=== PATIENT | female | born 1945 | race Caucasian/White ===

== ENCOUNTER 2022-03-27 12:53 | Inpatient (IN) | payer MEDICARE, OTHER ==
[~2022-03-27] VITALS: Ht 167.6 cm; Wt 66.2 kg
--- NOTE | 2022-03-27 13:05 | NUR ---
placed a call and spoke to Op # [id number], pt to be observed for 4 hours. And EKG and LABS to be done, Dr Sharma made aware.
[2022-03-27] MEDS ORDERED: IV NORMAL SALINE 1000 ML BAG IV ONE (13:15)
--- NOTE | 2022-03-27 13:30 | NUR ---
JACLYN officer #[id number] at the bedside for Psych eval.
[2022-03-27 13:36] LABS: CARBON DIOXIDE 28 mmol/L (21-32); CHLORIDE 109 mmol/L (98-107); CREATININE 1.1 mg/dL (0.6-1.3); GLUCOSE 88 mg/dL (74-106); UREA NITROGEN, BLOOD 21 mg/dL (7-18)
[2022-03-27 13:42] LABS: ACETAMINOPHEN < 2.0 ug/mL (10-30); ALANINE AMINOTRANSFERASE 12 U/L (14-59); ALKALINE PHOSPHATASE 53 U/L (50-136); ASPARTATE AMINOTRANSFERASE 10 U/L (15-37); BILIRUBIN,DIRECT 0.1 mg/dL (0.0-0.2); BILIRUBIN,TOTAL 0.5 mg/dL (0.2-1.0); MEAN CORPUSCULAR HEMOGLOBIN 30.9 uug (24.7-32.8); MEAN CORPUSCULAR VOLUME 90.1 fL (75.5-95.3); PLATELET COUNT (AUTO) 269 K/uL (179-408); TOTAL PROTEIN, SERUM 5.7 g/dL (6.4-8.2)
--- NOTE | 2022-03-27 13:45 | NUR ---
Pt placed on 5150 hold for DTS by JACLYN.
[2022-03-27 13:49] LABS: *BILIRUBIN,URIN NEGATIVE (NEGATIVE); *BLOOD, URINE NEGATIVE (NEGATIVE); *CLARITY,URINE CLEAR (CLEAR); *COLOR,URINE YELLOW (YELLOW); *KETONES,URINE NEGATIVE (NEGATIVE); *UROBILINOGEN,URINE 0.2 E.U./dl (NORMAL); LEUKOCYTE ESTERASE ,URINE NEGATIVE (NEGATIVE); NITRITE, URINE NEGATIVE (NEGATIVE); UGLUCOSE NEGATIVE (NEGATIVE)
[2022-03-27 13:50] LABS: ETHANOL < 3 MG/DL (0-0)
[2022-03-27 14:02] LABS: *AMPHETAMINE, URINE NEGATIVE (NEGATIVE); *CANNABINOID, URINE NEGATIVE (NEGATIVE); *COCCAINE, URINE NEGATIVE (NEGATIVE); *OPIATE, URINE NEGATIVE (NEGATIVE); *PHENCYCLIDINE SCREEN,URINE NEGATIVE (NEGATIVE)
--- NOTE | 2022-03-27 14:55 | NUR ---
Light lunch provided, pt ate w/ moderate appettite.
--- NOTE | 2022-03-27 17:00 | NUR ---
Pt medically cleared for admit to MHU.
[2022-03-27] MEDS ORDERED: [UNRECOGNIZED DRUG - OTHER] PO (17:37)
[2022-03-27] MEDS ORDERED: LAMO100T17 PO (17:37)
[2022-03-27] MEDS ORDERED: TRAM50TA2 PO (17:37)
[2022-03-27] MEDS ORDERED: TRAZ-257 PO (17:37)
--- NOTE | 2022-03-27 18:06 | NUR ---
Dinner tray provided, pt had poor appettite.
--- NOTE | 2022-03-27 18:45 | NUR ---
Pt transfered to [facility].
--- NOTE | 2022-03-27 19:00 | NUR ---
Admitted patient in MHU unit under Dr. Evangelista and Dr Jackson. Patient alert oriented, well groomed, no skin issue, ambulate with min assist, continent of bladder, had BM yesterday per patient. Daugher and company at bedside. Patient has clear speech but has hand tremors, and patient state it's hereditary from her family. Patient tremors was able to control at some point when holding a cup of water. [place] to the room and toilet, TONGUE AND QUARTER STITCHER offered shower but refused, cont to monitor.
[2022-03-27] MEDS ORDERED: BLOOD SUGAR DIAGNOSTIC 1 EACH STRIP VI ONE (19:45)
[2022-03-27] MEDS ORDERED: MAG HYDROX/AL HYDROX/SIMETH 30 ML LIQUID UDC PO PRN (19:45)
[2022-03-27] MEDS ORDERED: MAGNESIUM HYDROXIDE 30 ML LIQUID UDC PO PRN (19:45)
[2022-03-27] MEDS ORDERED: TEMAZEPAM 7.5 MG CAPSULE PO PRN (19:45)
[2022-03-27 20:06] VITALS: BP 113/60
[2022-03-28] MEDS ORDERED: ACETAMINOPHEN 325 MG TABLET ONE ×3 (00:13→00:15)
[2022-03-28] MEDS: ACETAMINOPHEN 325 MG TABLET PO PRN (00:18)
[2022-03-28] MEDS: LORAZEPAM 1 MG TABLET PO PRN (00:18)
[2022-03-28 07:49] LABS: CREATININE 0.8 mg/dL (0.6-1.3); POTASSIUM 3.5 mmol/L (3.5-5.1); TOTAL PROTEIN, SERUM 6.4 g/dL (6.4-8.2)
[2022-03-28 07:56] VITALS: BP 116/65
[2022-03-28] MEDS ORDERED: LAMOTRIGINE 100 MG TABLET PO SCH ×2 (09:00→21:00)
--- NOTE | 2022-03-28 12:08 | NUR ---
TREVA Initial Discharge Plan: Pt currently resides at home with her , Mono located at [address] [place] [address] ([phone]). Pt stated she will return home with her upon discharge. SW will contact pt's , Mono ([phone]) to discuss pt's discharge plan. TREVA will continue to work with pt, family and MD to ensure a safe and proper discharge plan.
--- NOTE | 2022-03-28 12:10 | NUR ---
Firearms Report: Document Review Specialist completed and submitted a [employer] firearms report for 5150 a danger to herself certifications. A copy of report has been placed in patient chart.
--- NOTE | 2022-03-28 15:20 | NUR ---
Received patient sleeping in the room. A/O X 3 -4 to person, place, situation. Pt. is isolative, withdrawn, depressed, cooperative with care, and compliant with medications. Pt. ambulates without assistance. Self care. Denies SI/HI AH/VH, SOB, pain or any discomfort. Pt. is continent of bladder and bowel. Emotional support provided. Fall and safety precautions implemented.
[2022-03-28 16:06] VITALS: BP 128/66
[2022-03-28 20:00] VITALS: BP 117/60
[2022-03-28] MEDS: MIRTAZAPINE 15 MG TABLET PO SCH (20:44)
[2022-03-28] MEDS: ZIPRASIDONE 20 MG CAPSULE PO SCH (20:44)
--- NOTE | 2022-03-29 06:00 | NUR ---
GPS: Remain calm and cooperative with meds and care. no behavior noted at this time. no agitation noted. slept 7.15 hrs through the night. continue plan of care.
[2022-03-29 07:54] VITALS: BP 135/69
--- NOTE | 2022-03-29 13:22 | NUR ---
Gps/Fuel Tank Sealer And Tester- Cell phone taken ou of the safe, given back to as she requested. Patient anxious, , redirectable, making her simple needs known to staff, claimed she is looking forward to go home. Encouraged continued verbalizations of her feelings .
[2022-03-29 16:39] VITALS: BP 115/59
[2022-03-29 20:00] VITALS: BP 114/67
[2022-03-29] MEDS: LAMOTRIGINE 100 MG TABLET PO SCH (20:25)
[2022-03-29] MEDS: ZIPRASIDONE 20 MG CAPSULE PO SCH (20:34)
[2022-03-29] MEDS: MIRTAZAPINE 15 MG TABLET PO SCH (20:34)
[2022-03-30] MEDS: TRAZODONE 100 MG TABLET PO PRN ×2 (01:19→20:29)
[2022-03-30 07:49] VITALS: BP 126/69
[2022-03-30] MEDS: TRAMADOL HCL 50 MG TABLET PO PRN (09:13)
[2022-03-30] MEDS: MIRTAZAPINE 15 MG TABLET PO SCH (20:29)
[2022-03-30] MEDS: ZIPRASIDONE 20 MG CAPSULE PO SCH (20:29)
[2022-03-30] MEDS: LAMOTRIGINE 100 MG TABLET PO SCH (20:29)
[2022-03-30] MEDS: ACETAMINOPHEN 325 MG TABLET PO PRN (20:30)
[2022-03-30 20:57] VITALS: BP 121/66
--- NOTE | 2022-03-31 05:09 | NUR ---
gps notes: Received patient in her room talking to her peer, Patient is pleasant when greeted. Patient able to communicate needs. Compliant with medications. Denies SI. Verbalized concerns on the medications that she's taking. Patient educated on the effect of the medications. Patient verbalized understanding. Trazadone given as per patient request. Uncontrollable hand tremors noted. Patient sleeping on and off during shift as she worries about her room mate. Safety strategies in place.
[2022-03-31 08:20] VITALS: BP 119/58
[2022-03-31 15:28] VITALS: BP 111/70
[2022-03-31] MEDS: POLYVINYL ALCOHOL OPHT DROPS 15 ML BOTTLE EACHEYE PRN (15:47)
--- NOTE | 2022-03-31 18:22 | NUR ---
Gps/Production Utility Worker-Affect pleasant, interacting fairly well with her selected peer . No Crying spells noted. Compliant with her medications. Showered self ind. after set up. Continue o show motivations in self care and meds. management. Complained of dryness in her eyes , orders received fro Tiff LEYVA . Able to make her needs known to the staff.
[2022-03-31] MEDS: LORAZEPAM 1 MG TABLET PO PRN (19:00)
[2022-03-31] MEDS: ZIPRASIDONE 20 MG CAPSULE PO SCH (20:04)
[2022-03-31] MEDS: MIRTAZAPINE 15 MG TABLET PO SCH (20:05)
[2022-03-31] MEDS: LAMOTRIGINE 100 MG TABLET PO SCH (20:05)
[2022-03-31] MEDS: ACETAMINOPHEN 325 MG TABLET PO PRN (20:36)
[2022-03-31] MEDS: TRAZODONE 100 MG TABLET PO PRN (22:02)
[2022-03-31 22:18] VITALS: BP 126/67
--- NOTE | 2022-04-01 03:26 | NUR ---
Received patient in bed. Awake and alert. Patient made a verbal contract for safety with this technical proposal writer and denies active SI at this time. Safety Stratiges are in place. Continuing to monitor closely and encourage the patient to verbalize needs and to express feeling and concerns.
[2022-04-01 07:53] VITALS: BP 122/65
[2022-04-01] MEDS: POLYVINYL ALCOHOL OPHT DROPS 15 ML BOTTLE EACHEYE PRN (08:38)
--- NOTE | 2022-04-01 10:14 | NUR ---
Gps/Automatic Clipper And Stripper-Up early during the initial rounds , always taking care of her roommate, paying attention on her simple needs. Dryness to his eyes, prn artificial tears was applied , verbalized some relief. Denies any S.I. simone for safety , interacting with her peer.
[2022-04-01] MEDS: TRAMADOL HCL 50 MG TABLET PO PRN ×2 (14:20→21:28)
--- NOTE | 2022-04-01 14:46 | NUR ---
Gps/Card Puncher- Complained of lower back pain, instructed to lay down in bed to rest her back, claimed it aggravates her pain when she kept standing , ultram 50 mg 1 tab. po was given, encouraged to stay of her back , repositioned for comfort.
[2022-04-01] MEDS: ACETAMINOPHEN 325 MG TABLET PO PRN (15:37)
--- NOTE | 2022-04-01 15:39 | NUR ---
Gps/Clothes Ironer- Patient's in to visit, brought some kind of electric unit device that patient uses at home to help her lower back, r/t long cords noted informed patient and family it is not allowed to have such device here for safe, informed patient was medicated w/ Ultram 50 mg po, prior, and he stated" that's ' good ultram is ok" informed will have Psychiatrist to call him tonight or tomorrow. Per tomorrow will have a big meeting r/t concern why patient is still here , she's been here for more than 72 hours, tried to explained to why she's still on hold, informed Psychiatrist will explained and and will make sure he's get the call . While talking to patient claimed she felt a lot better , adequate relief pain , level 4/10 , will continue to monitor pain levels. remains in the room visiting.
[2022-04-01 16:49] VITALS: BP 98/56
--- NOTE | 2022-04-01 17:29 | NUR ---
Gps/Authorization Rep- Device brought in by patient's ,was returned to him was told such equipments not allowed r/r to long cords and electrical , verbalized understanding, apologized for brining the equipment , claimed worried about Bellas' > pain on her lower back, apparently ultram 50 mg po works for the patient , had adequate relief from her pain.
--- NOTE | 2022-04-01 17:42 | NUR ---
Gps/Regulatory Technician- Patient has some kind of implant in her left buttock , claimed she has it for more than a year , she uses the device 3 hours at a time , charged the machine q 10 days, but unable to check exactly how , device taken home by .
[2022-04-01 19:54] VITALS: BP 107/68
[2022-04-01] MEDS: ZIPRASIDONE 20 MG CAPSULE PO SCH (21:15)
[2022-04-01] MEDS: LAMOTRIGINE 100 MG TABLET PO SCH (21:15)
[2022-04-01] MEDS: MIRTAZAPINE 15 MG TABLET PO SCH (21:15)
[2022-04-01] MEDS: TRAZODONE 100 MG TABLET PO PRN (21:15)
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
[2022-04-02 07:52] VITALS: BP 115/54
--- NOTE | 2022-04-02 10:18 | NUR ---
TREVA Discharge Note: Pt will be discharged to Home [address] [facility], [address] [place] [address] via pts husbands transportation at 1PM. TREVA spoke with pts , Mono ([phone]) and daughter, Brendan ([phone]) who are aware and agreeable with the discharge plan. Pt is aware and agreeable with discharge plans. Pt is alert and oriented x4, is unable to plan for self-care at this time; however, is willing to accept care by a full-time narrow gauge brakeman per Brendan and pts . Pt denies any suicidal or homicidal ideation. Pt will follow-up with her outpatient Psychiatrist, Dr. Taylor on April 06 at 2PM ([phone]) located at [address] [place] [address] [address] [address]. TREVA left a voicemail for pts daughter, Brendan ([phone]) regarding her follow-up appointment with the psychiatrist. TREVA informed pts , Mono of pts follow-up appointment details with the psychiatrist. Pt will follow-up with her outpatient supervisor spring up. Pt presents with calm mood and congruent affect. PHARMACY: [facility]: [address] [place] [address] ([phone]).
--- NOTE | 2022-04-02 13:15 | NUR ---
GPS: Nursing Notes: Discharge Notes: Patient is awake and responding to her name, compliant with her medications, cooperative with nursing care, following staff directions, A/Ox4, denies SI/HI, denies AH/VH, denies pain or discomfort, denies SOB, discharge to home with Lenard Villareal at [address] [facility] [address], [place] [address]. Patient will follow up with Dr. Taylor on April 06 at 2pm . Also, patient will follow up with with her own primary physician as soon as possible. Mark Brito NP [phone] Addendum: 04/02/22 at 1333 by NELA KIRK LVN Continuation of charting: Mark Brito NP called [facility] pharmacy per family request, picked up by her - Mono, transported home via private vehicle, patient took all her belongings with her, information and instructions given to the patient.
== END 2022-04-02 13:15 | disposition home or self-care (01) | DRG 881 ==
LOC: ER 12:53 → GPS 18:31
PROVIDERS: ADMIT Nurse Practitioner Psychiatric/Mental Health; ATTEND Registered Nurse
DX: F32.9 Major depressive disorder, single episode, unspecified (principal); T46.5X2A Poisoning by other antihypertensive drugs, intentional self-harm, initial encounter; I95.89 Other hypotension; Y92.039 Unspecified place in apartment as the place of occurrence of the external cause; J44.9 Chronic obstructive pulmonary disease, unspecified; M81.0 Age-related osteoporosis without current pathological fracture; I10 Essential (primary) hypertension; F41.9 Anxiety disorder, unspecified; Z20.822 Contact with and (suspected) exposure to COVID-19; Z59.9 Problem related to housing and economic circumstances, unspecified; F39 Unspecified mood [affective] disorder; R41.9 Unspecified symptoms and signs involving cognitive functions and awareness; Z91.51 Personal history of suicidal behavior; Z79.899 Other long term (current) drug therapy
CPT/HCPCS: 36415; 71045; 85025; 93005; A4663; G0480; J7040

== ENCOUNTER 2024-07-07 13:27 | Inpatient (IN) | payer MEDICARE, OTHER ==
[~2024-07-07] VITALS: Ht 167.6 cm; Wt 64.9 kg
[~2024-07-07 13:27] MED LIST: TRAM50TA2 PO
[2024-07-07] MEDS ORDERED: DOCU100C36 PO (14:09)
[2024-07-07 14:19] VITALS: BP 117/48; TEMP 99; O2SAT 95
[2024-07-07] MEDS ORDERED: VILA20TA PO (14:42)
[2024-07-07] MEDS ORDERED: CLON1TAB12 PO (14:42)
[2024-07-07] MEDS ORDERED: LAMO100T17 PO (14:42)
[2024-07-07] MEDS ORDERED: HYDR-4209 PO (14:42)
[2024-07-07] MEDS ORDERED: OXCA150T13 PO ×2 (14:42)
[2024-07-07] MEDS ORDERED: TRAZ-182 PO (14:42)
[2024-07-07] MEDS ORDERED: ENOX40DI SQ (14:42)
[2024-07-07] MEDS ORDERED: PANT40TA49 PO (14:44)
[2024-07-07] MEDS: LAMOTRIGINE 100 MG TABLET PO SCH (17:47)
[2024-07-07] MEDS: DOCUSATE SODIUM 100 MG CAPSULE PO SCH (17:47)
[2024-07-07] MEDS: HYDROCODONE/APAP 5-325MG TABLET PO PRN (17:48)
[2024-07-07] MEDS ORDERED: Medication Not On Formulary EA (Vilazodone Hydrochloride (Viibryd) 20 MG) PO SCH (18:00)
[2024-07-07 20:00] VITALS: BP 118/43; TEMP 98.7; O2SAT 94
[2024-07-07] MEDS: ENOXAPARIN SODIUM 40 MG/0.4 ML DISP.SYRIN SQ SCH (21:41)
[2024-07-07] MEDS: OXCARBAZEPINE 150 MG TABLET PO SCH (21:42)
[2024-07-08] VITALS (7 sets, daily range): BP systolic 94–121; BP diastolic 48–57; TEMP 98.2–98.9; O2SAT 91–97
[2024-07-08] MEDS: CLONAZEPAM 1 MG TABLET PO PRN (03:13)
[2024-07-08 07:04] LABS: BASOPHILS % (AUTO) 0.3 % (0.0-2.0); EOSINOPHILS # (AUTO) 0.2 K/uL (0.0-0.7); EOSINOPHILS % (AUTO) 3.3 % (0.0-7.0); LYMPHOCYTES # (AUTO) 1.5 K/uL (0.8-4.8); LYMPHOCYTES % (AUTO) 21.9 % (20.5-51.5); MEAN CORPUSCULAR HEMOGLOBIN 32.6 uug (24.7-32.8); MEAN CORPUSCULAR HGB CONC 36 g/dL (32.3-35.6); MEAN CORPUSCULAR VOLUME 91.9 fL (75.5-95.3); MONOCYTES # (AUTO) 0.7 K/uL (0.1-1.30); MONOCYTES % (AUTO) 9.7 % (0.0-11.0); NEUTROPHILS # (AUTO) 4.5 K/uL (1.8-8.9); NEUTROPHILS % (AUTO) 64.8 % (38.5-71.5); PLATELET COUNT (AUTO) 246 K/uL (179-408); RED CELL DISTRIBUTION WIDTH 14.3 % (12.3-17.7)
[2024-07-08 07:25] LABS: RED BLOOD CELL COUNT(AUTO) 2.24 MIL/uL (3.63-4.92)
[2024-07-08 07:26] LABS: DIFFERENTIAL COMMENT 1; HEMATOCRIT 20.6 % (31.2-41.9); HEMOGLOBIN 7.3 g/dL (10.9-14.3)
[2024-07-08 07:35] LABS: THYROID STIMULATING HORMONE 0.974 mIU/mL (0.358-3.740)
[2024-07-08 08:12] LABS: ALANINE AMINOTRANSFERASE 16 U/L (14-59); ALBUMIN 2.1 g/dL (3.4-5.0); ALKALINE PHOSPHATASE 53 U/L (50-136); ASPARTATE AMINOTRANSFERASE 18 U/L (15-37); BILIRUBIN,TOTAL 1.1 mg/dL (0.2-1.0); CALCIUM 7.7 mg/dL (8.5-10.1); CARBON DIOXIDE 32 mmol/L (21-32); CHLORIDE 101 mmol/L (98-107); CHOLESTEROL 144 mg/dL (<200); CREATININE 0.4 mg/dL (0.6-1.3); GLUCOSE 91 mg/dL (74-106); HDL CHOLESTEROL 44 mg/dL (40-60); MAGNESIUM 2.1 mg/dL (1.8-2.4); PHOSPHOROUS 1.9 mg/dL (2.5-4.9); POTASSIUM 3.1 mmol/L (3.5-5.1); SODIUM SERUM 136 mmol/L (136-145); TOTAL PROTEIN, SERUM 5.1 g/dL (6.4-8.2); TRIGLYCERIDES 69 MG/DL (30-150); UREA NITROGEN, BLOOD 7 mg/dL (7-18)
[2024-07-08] MEDS: OXCARBAZEPINE 150 MG TABLET PO SCH (09:21)
[2024-07-08] MEDS: PANTOPRAZOLE SODIUM 40 MG TABLET.DR PO SCH (09:25)
[2024-07-08] MEDS: POTASSIUM CHLORIDE 20 MEQ POWDER PACKET PO ONE (11:31)
[2024-07-08] MEDS: NEUTRA PHOS PACKET PO ONE (15:53)
[2024-07-08] MEDS: [UNRECOGNIZED DRUG - OTHER] PO SCH (21:19)
[2024-07-08] MEDS: VIIBRYD 20 MG PO SCH (21:19)
[2024-07-08] MEDS: TRAZODONE 50 MG TABLET PO PRN (22:36)
[2024-07-09 06:00] VITALS: BP 139/65; TEMP 99; O2SAT 100
[2024-07-09 08:40] VITALS: O2SAT 95
[2024-07-09 08:46] VITALS: BP 135/64; TEMP 99; O2SAT 97
[2024-07-09 15:55] VITALS: BP 115/55; TEMP 98.3; O2SAT 99
[2024-07-09] MEDS: MAGNESIUM HYDROXIDE 30 ML LIQUID UDC PO PRN (16:54)
[2024-07-09 21:21] VITALS: O2SAT 97
[2024-07-09 22:27] VITALS: BP 147/69; TEMP 98.2; O2SAT 100
[2024-07-10 06:00] VITALS: BP 121/88; TEMP 99.2; O2SAT 92
[2024-07-10 06:41] LABS: BASOPHILS % (AUTO) 0.5 % (0.0-2.0); EOSINOPHILS # (AUTO) 0.4 K/uL (0.0-0.7); EOSINOPHILS % (AUTO) 5.9 % (0.0-7.0); HEMATOCRIT 24.3 % (31.2-41.9); HEMOGLOBIN 8.3 g/dL (10.9-14.3); LYMPHOCYTES # (AUTO) 1.7 K/uL (0.8-4.8); LYMPHOCYTES % (AUTO) 24.6 % (20.5-51.5); MEAN CORPUSCULAR HEMOGLOBIN 31.7 uug (24.7-32.8); MEAN CORPUSCULAR HGB CONC 34 g/dL (32.3-35.6); MEAN CORPUSCULAR VOLUME 92.7 fL (75.5-95.3); MONOCYTES # (AUTO) 0.7 K/uL (0.1-1.30); MONOCYTES % (AUTO) 10.4 % (0.0-11.0); NEUTROPHILS % (AUTO) 58.6 % (38.5-71.5); PLATELET COUNT (AUTO) 329 K/uL (179-408); RED BLOOD CELL COUNT(AUTO) 2.62 MIL/uL (3.63-4.92); RED CELL DISTRIBUTION WIDTH 14.6 % (12.3-17.7); WHITE BLOOD COUNT (AUTO) 6.8 K/uL (3.8-11.8)
[2024-07-10 06:55] LABS: DIFFERENTIAL COMMENT 1
[2024-07-10 07:01] LABS: ALANINE AMINOTRANSFERASE 40 U/L (14-59); ALBUMIN 2.3 g/dL (3.4-5.0); ALKALINE PHOSPHATASE 181 U/L (50-136); ASPARTATE AMINOTRANSFERASE 44 U/L (15-37); CALCIUM 8.2 mg/dL (8.5-10.1); CARBON DIOXIDE 31 mmol/L (21-32); CHLORIDE 101 mmol/L (98-107); CREATININE 0.5 mg/dL (0.6-1.3); GLUCOSE 91 mg/dL (74-106); MAGNESIUM 2.1 mg/dL (1.8-2.4); PHOSPHOROUS 2.5 mg/dL (2.5-4.9); POTASSIUM 3.7 mmol/L (3.5-5.1); SODIUM SERUM 135 mmol/L (136-145); TOTAL PROTEIN, SERUM 5.6 g/dL (6.4-8.2); UREA NITROGEN, BLOOD 7 mg/dL (7-18)
[2024-07-10 07:13] LABS: IRON, SERUM 28 ug/dL (50-175)
[2024-07-10] MEDS: FLEET ENEMA 133 ML BOTTLE RC PRN (13:51)
[2024-07-10] MEDS: CALCIUM CARBONATE 500 MG TAB.CHEW PO PRN (13:52)
[2024-07-10 20:00] VITALS: BP 116/58; TEMP 97.9; O2SAT 97
[2024-07-11 06:00] VITALS: BP 139/54; TEMP 98.4; O2SAT 92
[2024-07-11 08:31] VITALS: BP 145/57; TEMP 98.4; O2SAT 98
[2024-07-11] MEDS: BISACODYL 10 MG SUPP.RECT RC ONE (09:17)
[2024-07-11 11:39] VITALS: BP 116/53; TEMP 98.4; O2SAT 94
[2024-07-11 16:21] VITALS: BP 132/58; TEMP 97.6; O2SAT 96
[2024-07-12 04:35] VITALS: O2SAT 97
[2024-07-12 07:00] VITALS: BP_SYST 47; TEMP 98.4; O2SAT 92
[2024-07-12] MEDS ORDERED: REMEDY ESSENTIAL ZINC PASTE 113 GM TOP PRN (09:15)
[2024-07-12] MEDS: CLONAZEPAM 1 MG TABLET PO PRN (14:28)
[2024-07-12 15:38] VITALS: O2SAT 96
[2024-07-12 16:00] VITALS: BP 108/62; TEMP 99.3; O2SAT 94
[2024-07-12 22:10] VITALS: BP 115/61; TEMP 99.2; O2SAT 95
[2024-07-13 06:52] VITALS: BP 116/58; TEMP 98.4; O2SAT 97
[2024-07-13] MEDS: SIMETHICONE 80 MG TAB.CHEW PO PRN (08:36)
[2024-07-13 14:04] VITALS: BP 119/62; TEMP 98.4; O2SAT 95
[2024-07-13 16:00] VITALS: BP 107/51; TEMP 98.8; O2SAT 93
[2024-07-13 20:16] VITALS: BP 112/54; TEMP 98.1; O2SAT 92
[2024-07-13] MEDS: CLONAZEPAM 1 MG TABLET PO SCH (21:04)
[2024-07-14 06:57] VITALS: BP 129/56; TEMP 98.7; O2SAT 95
[2024-07-14 08:38] VITALS: BP 117/56; TEMP 98.3; O2SAT 95
[2024-07-14] MEDS: ACETAMINOPHEN 325 MG TABLET PO PRN (09:13)
[2024-07-14 11:08] VITALS: O2SAT 97
[2024-07-14] MEDS: BISACODYL 10 MG SUPP.RECT RC ONE (13:51)
[2024-07-14] MEDS: ENSURE ENLIVE (VAN) 240 ML LIQUID PO SCH (13:58)
[2024-07-14 16:30] VITALS: BP 118/52; TEMP 98.3; O2SAT 95
[2024-07-14 21:47] VITALS: BP 115/46; TEMP 98.1; O2SAT 92
[2024-07-14 22:00] VITALS: O2SAT 93
[2024-07-15 06:30] VITALS: BP 132/59; TEMP 98.4; O2SAT 94
[2024-07-15 06:45] LABS: BASOPHILS # (AUTO) 0.1 K/UL (0.0-0.2); BASOPHILS % (AUTO) 0.7 % (0.0-2.0); EOSINOPHILS # (AUTO) 0.5 K/uL (0.0-0.7); EOSINOPHILS % (AUTO) 5.8 % (0.0-7.0); HEMATOCRIT 26.5 % (31.2-41.9); HEMOGLOBIN 9.4 g/dL (10.9-14.3); LYMPHOCYTES # (AUTO) 2.6 K/uL (0.8-4.8); LYMPHOCYTES % (AUTO) 30.7 % (20.5-51.5); MEAN CORPUSCULAR HEMOGLOBIN 32.9 uug (24.7-32.8); MEAN CORPUSCULAR HGB CONC 35 g/dL (32.3-35.6); MEAN CORPUSCULAR VOLUME 92.8 fL (75.5-95.3); MONOCYTES # (AUTO) 0.6 K/uL (0.1-1.30); MONOCYTES % (AUTO) 7.6 % (0.0-11.0); NEUTROPHILS # (AUTO) 4.7 K/uL (1.8-8.9); NEUTROPHILS % (AUTO) 55.2 % (38.5-71.5); PLATELET COUNT (AUTO) 454 K/uL (179-408); RED BLOOD CELL COUNT(AUTO) 2.86 MIL/uL (3.63-4.92); RED CELL DISTRIBUTION WIDTH 15.2 % (12.3-17.7); WHITE BLOOD COUNT (AUTO) 8.5 K/uL (3.8-11.8)
[2024-07-15 06:46] LABS: DIFFERENTIAL COMMENT 1
[2024-07-15 07:00] LABS: CALCIUM 8.7 mg/dL (8.5-10.1); CARBON DIOXIDE 30 mmol/L (21-32); CHLORIDE 101 mmol/L (98-107); CREATININE 0.5 mg/dL (0.6-1.3); GLUCOSE 103 mg/dL (74-106); MAGNESIUM 1.8 mg/dL (1.8-2.4); PHOSPHOROUS 3.5 mg/dL (2.5-4.9); POTASSIUM 3.9 mmol/L (3.5-5.1); SODIUM SERUM 136 mmol/L (136-145); UREA NITROGEN, BLOOD 9 mg/dL (7-18)
[2024-07-15 16:00] VITALS: BP 116/54; TEMP 98.2; O2SAT 95
[2024-07-15 20:00] VITALS: BP 116/51; TEMP 97.6; O2SAT 94
[2024-07-15] MEDS: TRAZODONE 100 MG TABLET PO SCH (21:06)
[2024-07-15] MEDS: OXYCODONE HCL 5 MG TABLET PO SCH (21:08)
[2024-07-16 06:43] LABS: BASOPHILS % (AUTO) 0.7 % (0.0-2.0); EOSINOPHILS # (AUTO) 0.4 K/uL (0.0-0.7); EOSINOPHILS % (AUTO) 6.2 % (0.0-7.0); HEMATOCRIT 25.8 % (31.2-41.9); HEMOGLOBIN 8.8 g/dL (10.9-14.3); LYMPHOCYTES # (AUTO) 2.1 K/uL (0.8-4.8); LYMPHOCYTES % (AUTO) 29.7 % (20.5-51.5); MEAN CORPUSCULAR HGB CONC 34 g/dL (32.3-35.6); MEAN CORPUSCULAR VOLUME 93.6 fL (75.5-95.3); MONOCYTES # (AUTO) 0.6 K/uL (0.1-1.30); MONOCYTES % (AUTO) 8.1 % (0.0-11.0); NEUTROPHILS # (AUTO) 3.9 K/uL (1.8-8.9); NEUTROPHILS % (AUTO) 55.3 % (38.5-71.5); PLATELET COUNT (AUTO) 459 K/uL (179-408); RED BLOOD CELL COUNT(AUTO) 2.75 MIL/uL (3.63-4.92); RED CELL DISTRIBUTION WIDTH 15.8 % (12.3-17.7)
[2024-07-16 06:49] LABS: CALCIUM 8.6 mg/dL (8.5-10.1); CARBON DIOXIDE 31 mmol/L (21-32); CHLORIDE 102 mmol/L (98-107); CREATININE 0.6 mg/dL (0.6-1.3); GLUCOSE 92 mg/dL (74-106); MAGNESIUM 2.1 mg/dL (1.8-2.4); PHOSPHOROUS 4.2 mg/dL (2.5-4.9); SODIUM SERUM 137 mmol/L (136-145); UREA NITROGEN, BLOOD 9 mg/dL (7-18)
[2024-07-16 06:51] LABS: DIFFERENTIAL COMMENT 1
[2024-07-16 07:03] VITALS: BP 119/53; TEMP 98.4; O2SAT 93
[2024-07-16 16:00] VITALS: BP 109/56; TEMP 97.3; O2SAT 98
[2024-07-16 20:11] VITALS: BP 111/57; TEMP 98.1; O2SAT 90
[2024-07-17 06:56] VITALS: BP 127/51; TEMP 98.5; O2SAT 90
[2024-07-17 07:05] LABS: BASOPHILS # (AUTO) 0.1 K/UL (0.0-0.2); BASOPHILS % (AUTO) 0.7 % (0.0-2.0); EOSINOPHILS # (AUTO) 0.3 K/uL (0.0-0.7); EOSINOPHILS % (AUTO) 4.4 % (0.0-7.0); HEMATOCRIT 28.1 % (31.2-41.9); HEMOGLOBIN 9.6 g/dL (10.9-14.3); LYMPHOCYTES # (AUTO) 1.7 K/uL (0.8-4.8); LYMPHOCYTES % (AUTO) 21.2 % (20.5-51.5); MEAN CORPUSCULAR HEMOGLOBIN 31.9 uug (24.7-32.8); MEAN CORPUSCULAR HGB CONC 34 g/dL (32.3-35.6); MEAN CORPUSCULAR VOLUME 93.5 fL (75.5-95.3); MONOCYTES # (AUTO) 0.6 K/uL (0.1-1.30); MONOCYTES % (AUTO) 7.1 % (0.0-11.0); NEUTROPHILS # (AUTO) 5.2 K/uL (1.8-8.9); NEUTROPHILS % (AUTO) 66.6 % (38.5-71.5); PLATELET COUNT (AUTO) 459 K/uL (179-408); RED CELL DISTRIBUTION WIDTH 15.4 % (12.3-17.7); WHITE BLOOD COUNT (AUTO) 7.8 K/uL (3.8-11.8)
[2024-07-17 07:19] LABS: DIFFERENTIAL COMMENT 1
[2024-07-17 07:21] LABS: CALCIUM 8.5 mg/dL (8.5-10.1); CARBON DIOXIDE 30 mmol/L (21-32); CHLORIDE 103 mmol/L (98-107); CREATININE 0.5 mg/dL (0.6-1.3); GLUCOSE 107 mg/dL (74-106); MAGNESIUM 1.5 mg/dL (1.8-2.4); PHOSPHOROUS 4.1 mg/dL (2.5-4.9); POTASSIUM 3.8 mmol/L (3.5-5.1); SODIUM SERUM 139 mmol/L (136-145); UREA NITROGEN, BLOOD 9 mg/dL (7-18)
[2024-07-17 07:52] VITALS: BP 121/64; TEMP 98.1
[2024-07-17] MEDS: MAGNESIUM OXIDE 400 MG TABLET PO ONE (09:15)
[2024-07-17 11:41] LABS: *BILIRUBIN,URIN NEGATIVE (NEGATIVE); *CLARITY,URINE CLEAR (CLEAR); *COLOR,URINE YELLOW (YELLOW); *KETONES,URINE NEGATIVE (NEGATIVE); *PROTEIN,URINE NEGATIVE (NEGATIVE); *UROBILINOGEN,URINE 0.2 E.U./dl (NORMAL); LEUKOCYTE ESTERASE ,URINE NEGATIVE (NEGATIVE); NITRITE, URINE POSITIVE (NEGATIVE); PH,URINE 7.5 (5.0-8.0); UGLUCOSE NEGATIVE (NEGATIVE)
[2024-07-17 11:49] LABS: *BLOOD, URINE TRACE (NEGATIVE)
[2024-07-17 11:50] LABS: BACTERIA,URINE FEW /HPF (NONE SEEN); RBC,URINE 20-50 /HPF (0-3); SQUAMOUS EPITHELIAL CELL,UR FEW /HPF (NONE SEEN); WBC,URINE 0-3 /HPF (0-3)
[2024-07-17 12:04] VITALS: BP 107/54; TEMP 98.4
[2024-07-17] MEDS: CEphaleXIN 500 MG CAPSULE PO SCH (13:31)
[2024-07-17 15:28] VITALS: BP 110/62; TEMP 98.4
[2024-07-17 19:00] VITALS: BP 110/57; TEMP 98.3; O2SAT 95
[2024-07-17 21:22] VITALS: O2SAT 95
[2024-07-17] MEDS: PHENAZOPYRIDINE HCL 100 MG TABLET PO SCH (23:47)
[2024-07-18 06:08] VITALS: BP 106/47; TEMP 98.8; O2SAT 95
[2024-07-18 08:30] VITALS: O2SAT 94
[2024-07-18 16:41] VITALS: BP 96/57; TEMP 98.7; O2SAT 95
[2024-07-18 20:30] VITALS: BP 109/54; TEMP 98.7; O2SAT 97
[2024-07-18 23:46] VITALS: O2SAT 96
[2024-07-19 06:00] VITALS: BP 125/57; TEMP 98.4; O2SAT 93
[2024-07-19] MEDS: SIMETHICONE 80 MG TAB.CHEW PO PRN (06:16)
[2024-07-19] MEDS: BISACODYL 10 MG SUPP.RECT RC PRN (10:42)
[2024-07-19] MEDS: REMEDY ESSENTIAL ZINC PASTE 113 GM TOP SCH (13:49)
[2024-07-19 16:00] VITALS: BP 102/64; TEMP 98.9; O2SAT 94
[2024-07-19 20:00] VITALS: BP 108/61; TEMP 98.1; O2SAT 95
[2024-07-20 06:00] VITALS: BP 131/59; TEMP 98.7; O2SAT 94
[2024-07-20 16:49] VITALS: BP 118/52; TEMP 98.2; O2SAT 90
[2024-07-20 19:00] VITALS: BP 120/51; TEMP 98.7; O2SAT 95
[2024-07-21 06:00] VITALS: BP 130/62; TEMP 98.8; O2SAT 93
[2024-07-21] MEDS: NITROFURANTOIN/NITROFURAN MAC 100 MG CAPSULE PO SCH (16:29)
[2024-07-21 20:00] VITALS: BP 122/51; TEMP 98; O2SAT 95
[2024-07-22 06:00] VITALS: BP 143/68; TEMP 98.6; O2SAT 95
[2024-07-22 12:00] VITALS: BP 143/72
[2024-07-22 16:01] VITALS: BP 127/61; TEMP 99; O2SAT 94
== END 2024-07-22 16:35 | DRG 559 ==
LOC: UNDOADMIN 13:27
PROVIDERS: ADMIT Physical Medicine & Rehabilitation Pain Medicine; ATTEND Physical Medicine & Rehabilitation Pain Medicine
DX: S72.142D Displaced intertrochanteric fracture of left femur, subsequent encounter for closed fracture with routine healing (principal); E43 Unspecified severe protein-calorie malnutrition; D62 Acute posthemorrhagic anemia; D68.59 Other primary thrombophilia; E87.1 Hypo-osmolality and hyponatremia; F31.30 Bipolar disorder, current episode depressed, mild or moderate severity, unspecified; W01.0XXD Fall on same level from slipping, tripping and stumbling without subsequent striking against object, subsequent encounter; I10 Essential (primary) hypertension; M81.0 Age-related osteoporosis without current pathological fracture; M19.90 Unspecified osteoarthritis, unspecified site; Z79.899 Other long term (current) drug therapy; Z90.49 Acquired absence of other specified parts of digestive tract; K21.9 Gastro-esophageal reflux disease without esophagitis; E83.39 Other disorders of phosphorus metabolism; E87.6 Hypokalemia; G25.0 Essential tremor
CPT/HCPCS: 36415; 71045; 73501; 82378; 83550; 83735; 84100; 84443; 84484; 85025; 93005; A4663; J1650

== ENCOUNTER 2024-09-10 02:07 | Inpatient (IN) | payer MEDICARE, OTHER ==
[~2024-09-10] VITALS: Ht 165.1 cm; Wt 63.5 kg
[~2024-09-10 02:07] MED LIST changes: +CLON1TAB12 PO; +DOCU100C36 PO; +ENOX40DI SQ; +HYDR-4209 PO; +LAMO100T17 PO; +OXCA150T13 PO; +PANT40TA49 PO; -TRAM50TA2 PO; +TRAZ-182 PO; +VILA20TA PO
[2024-09-10 02:59] LABS: BASOPHILS % (AUTO) 0.2 % (0.0-2.0); EOSINOPHILS % (AUTO) 0.1 % (0.0-7.0); HEMATOCRIT 38.3 % (31.2-41.9); HEMOGLOBIN 13.2 g/dL (10.9-14.3); LYMPHOCYTES # (AUTO) 0.6 K/uL (0.8-4.8); LYMPHOCYTES % (AUTO) 4.5 % (20.5-51.5); MEAN CORPUSCULAR HEMOGLOBIN 31.6 uug (24.7-32.8); MEAN CORPUSCULAR HGB CONC 35 g/dL (32.3-35.6); MEAN CORPUSCULAR VOLUME 91.6 fL (75.5-95.3); MONOCYTES # (AUTO) 1.1 K/uL (0.1-1.30); MONOCYTES % (AUTO) 8.4 % (0.0-11.0); NEUTROPHILS # (AUTO) 11.3 K/uL (1.8-8.9); NEUTROPHILS % (AUTO) 86.8 % (38.5-71.5); PLATELET COUNT (AUTO) 244 K/uL (179-408); RED BLOOD CELL COUNT(AUTO) 4.18 MIL/uL (3.63-4.92); RED CELL DISTRIBUTION WIDTH 15.2 % (12.3-17.7)
[2024-09-10 03:10] LABS: DIFFERENTIAL COMMENT 1
[2024-09-10 03:14] LABS: ALANINE AMINOTRANSFERASE 14 U/L (14-59); ALBUMIN 2.6 g/dL (3.4-5.0); ALKALINE PHOSPHATASE 76 U/L (50-136); ASPARTATE AMINOTRANSFERASE 10 U/L (15-37); BILIRUBIN,TOTAL 0.4 mg/dL (0.2-1.0); CALCIUM 8.9 mg/dL (8.5-10.1); CARBON DIOXIDE 28 mmol/L (21-32); CHLORIDE 100 mmol/L (98-107); CREATININE 0.8 mg/dL (0.6-1.3); GLUCOSE 115 mg/dL (74-106); LIPASE < 10 U/L (16-77); POTASSIUM 4.4 mmol/L (3.5-5.1); SODIUM SERUM 139 mmol/L (136-145); TOTAL PROTEIN, SERUM 6.5 g/dL (6.4-8.2); UREA NITROGEN, BLOOD 26 mg/dL (7-18)
[2024-09-10] MEDS ORDERED: OXCA150T5 PO ×2 (06:31)
[2024-09-10] MEDS ORDERED: ONDA-104 PO (06:31)
[2024-09-10] MEDS ORDERED: MELA5TAB20 PO (06:31)
[2024-09-10] MEDS ORDERED: BISA-79 PO (06:31)
[2024-09-10] MEDS ORDERED: BISA10SU61 RC (06:31)
[2024-09-10] MEDS ORDERED: NA P133E RC (06:31)
[2024-09-10] MEDS ORDERED: SIME80TA15 PO (06:31)
[2024-09-10] MEDS ORDERED: MULT-213 PO (06:31)
[2024-09-10] MEDS ORDERED: ACET-3117 PO (06:31)
[2024-09-10] MEDS ORDERED: CRAN450T9 PO (06:31)
[2024-09-10] MEDS ORDERED: ACET-73 PO (06:31)
[2024-09-10] MEDS ORDERED: MAGN400O6 PO (06:31)
[2024-09-10] MEDS ORDERED: NITR50CA PO (06:31)
[2024-09-10] MEDS ORDERED: norco PO (06:31)
[2024-09-10] MEDS ORDERED: CLON1TAB12 PO (06:31)
[2024-09-10] MEDS ORDERED: VILA20TA PO (06:31)
[2024-09-10] MEDS: IV NORMAL SALINE 1000 ML BAG IV ONE (08:04)
[2024-09-10] MEDS: COD LIVER OIL/ZINC OXIDE OINT 113 GM TUBE TOP PRN (08:05)
[2024-09-10] MEDS ORDERED: HYDROCODONE/APAP 5-325MG TABLET ONE (08:25)
[2024-09-10] MEDS: HYDROCODONE/APAP 5-325MG TABLET PO ONE (08:28)
[2024-09-10] MEDS ORDERED: PIPERACILLIN/TAZOBACTAM/D5W 50 ML IV ONE (09:12)
[2024-09-10] MEDS: PIPERACILLIN SODIUM/TAZOBACTAM 3.375 G in IV DEXTROSE 5% 50 ML IV ONE (09:24)
[2024-09-10] MEDS: IV LACTATED RINGERS SOLUTION 1,000 ML BAG IV ONE (10:11)
[2024-09-10 10:15] LABS: LACTIC ACID 2.3 mmol/L (0.4-2.0)
[2024-09-10 11:07] LABS: *CLARITY,URINE SLIGHTLY CLOUDY (CLEAR); *COLOR,URINE AMBER (YELLOW); *KETONES,URINE 1+ (NEGATIVE); *PROTEIN,URINE 2+ (NEGATIVE); *UROBILINOGEN,URINE 0.2 E.U./dl (NORMAL); LEUKOCYTE ESTERASE ,URINE NEGATIVE (NEGATIVE); NITRITE, URINE NEGATIVE (NEGATIVE); PH,URINE 5.5 (5.0-8.0); UGLUCOSE NEGATIVE (NEGATIVE)
[2024-09-10 11:13] LABS: *BILIRUBIN,URIN 2+ (NEGATIVE); *BLOOD, URINE TRACE (NEGATIVE)
[2024-09-10 11:22] LABS: BACTERIA,URINE MODERATE /HPF (NONE SEEN); RBC,URINE 0-3 /HPF (0-3); SQUAMOUS EPITHELIAL CELL,UR FEW /HPF (NONE SEEN); WBC,URINE 0-3 /HPF (0-3)
[2024-09-10 11:28] VITALS: BP 113/67; TEMP 98.2; O2SAT 97
[2024-09-10] MEDS ORDERED: MAGNESIUM HYDROXIDE 30 ML LIQUID UDC PO PRN (12:30)
[2024-09-10] MEDS ORDERED: REMEDY ESSENTIAL ZINC PASTE 113 GM TP PRN (12:30)
[2024-09-10] MEDS: IV NS 1000 ML 1,000 ML IV PRN (14:01)
[2024-09-10 15:08] VITALS: BP 104/46; TEMP 97.6; O2SAT 91
[2024-09-10] MEDS: PIPERACILLIN SODIUM/TAZOBACTAM 3.375 G in IV DEXTROSE 5% 100 ML IV SCH (16:37)
[2024-09-10 16:39] VITALS: O2SAT 97
[2024-09-10] MEDS: LAMOTRIGINE 100 MG TABLET PO SCH (16:42)
[2024-09-10] MEDS ORDERED: PIPERACILLIN SODIUM/TAZOBACTAM 3.375 G in IV DEXTROSE 5% 50 ML IV SCH (18:00)
[2024-09-10 19:47] VITALS: BP 87/53; TEMP 98.6; O2SAT 97
[2024-09-10 20:30] VITALS: BP 102/51; TEMP 98.4; O2SAT 97
[2024-09-10] MEDS: OXCARBAZEPINE 150 MG TABLET PO SCH (21:14)
[2024-09-10] MEDS: COD LIVER OIL/ZINC OXIDE OINT 113 GM TUBE TOP SCH (21:16)
[2024-09-11] VITALS (7 sets, daily range): BP systolic 92–165; BP diastolic 45–74; TEMP 97.6–98.7; O2SAT 95–99
[2024-09-11] MEDS: CLONAZEPAM 1 MG TABLET PO PRN (00:22)
[2024-09-11] MEDS: PANTOPRAZOLE SODIUM 40 MG TABLET.DR PO SCH (06:38)
[2024-09-11 07:18] LABS: BASOPHILS % (AUTO) 0.2 % (0.0-2.0); EOSINOPHILS # (AUTO) 0.2 K/uL (0.0-0.7); EOSINOPHILS % (AUTO) 2.4 % (0.0-7.0); HEMATOCRIT 32.7 % (31.2-41.9); HEMOGLOBIN 11.2 g/dL (10.9-14.3); LYMPHOCYTES % (AUTO) 11.2 % (20.5-51.5); MEAN CORPUSCULAR HEMOGLOBIN 30.9 uug (24.7-32.8); MEAN CORPUSCULAR HGB CONC 34 g/dL (32.3-35.6); MEAN CORPUSCULAR VOLUME 90.5 fL (75.5-95.3); MONOCYTES # (AUTO) 0.4 K/uL (0.1-1.30); MONOCYTES % (AUTO) 4.6 % (0.0-11.0); NEUTROPHILS % (AUTO) 81.6 % (38.5-71.5); PLATELET COUNT (AUTO) 224 K/uL (179-408); RED BLOOD CELL COUNT(AUTO) 3.61 MIL/uL (3.63-4.92); RED CELL DISTRIBUTION WIDTH 14.8 % (12.3-17.7); WHITE BLOOD COUNT (AUTO) 8.5 K/uL (3.8-11.8)
[2024-09-11 07:39] LABS: CARBON DIOXIDE 29 mmol/L (21-32); CHLORIDE 104 mmol/L (98-107); CREATININE 0.6 mg/dL (0.6-1.3); GLUCOSE 101 mg/dL (74-106); MAGNESIUM 1.9 mg/dL (1.8-2.4); PHOSPHOROUS 1.8 mg/dL (2.5-4.9); POTASSIUM 3.6 mmol/L (3.5-5.1); SODIUM SERUM 140 mmol/L (136-145); UREA NITROGEN, BLOOD 16 mg/dL (7-18)
[2024-09-11 07:48] LABS: DIFFERENTIAL COMMENT 1
[2024-09-11] MEDS: OXCARBAZEPINE 150 MG TABLET PO SCH (09:53)
[2024-09-11] MEDS: NEUTRA PHOS PACKET PO ONE (15:21)
[2024-09-11] MEDS: ACETAMINOPHEN 325 MG TABLET PO PRN (16:44)
[2024-09-11] MEDS: TRAZODONE 50 MG TABLET PO SCH (21:26)
[2024-09-12 05:47] VITALS: BP 117/66; TEMP 98.4
[2024-09-12 07:05] LABS: CALCIUM 7.3 mg/dL (8.5-10.1); CARBON DIOXIDE 28 mmol/L (21-32); CHLORIDE 104 mmol/L (98-107); CREATININE 0.5 mg/dL (0.6-1.3); GLUCOSE 94 mg/dL (74-106); PHOSPHOROUS 1.6 mg/dL (2.5-4.9); SODIUM SERUM 138 mmol/L (136-145); UREA NITROGEN, BLOOD 9 mg/dL (7-18)
[2024-09-12] MEDS: POTASSIUM CHLORIDE 20 MEQ TAB.PRT.SR PO ONE ×2 (09:50→13:07)
[2024-09-12 12:00] VITALS: BP 146/56; TEMP 97.8; O2SAT 98
[2024-09-12] MEDS: ONDANSETRON 4 MG/2 ML VIAL IV PRN (13:02)
[2024-09-12] MEDS: NEUTRA PHOS PACKET PO ONE (13:02)
[2024-09-12] MEDS: VANCOMYCIN FOR PO/GT/NG USE PO SCH (13:02)
[2024-09-12] MEDS: CHOLESTYRAMINE/ASPARTAME (LIGHT) 4 G/PKT PACKET PO SCH (13:03)
[2024-09-12 16:00] VITALS: BP 107/72; TEMP 97.8; O2SAT 95
[2024-09-12 16:16] VITALS: O2SAT 98
[2024-09-12 20:15] VITALS: BP 104/62; TEMP 97.8; O2SAT 98
[2024-09-13 01:17] VITALS: O2SAT 98
[2024-09-13 11:24] VITALS: BP 102/63; TEMP 98.5; O2SAT 96
[2024-09-13 15:21] VITALS: BP 100/52; TEMP 98.8; O2SAT 97
[2024-09-13 16:15] VITALS: O2SAT 96
[2024-09-13] MEDS ORDERED: ONDANSETRON 4 MG/2 ML VIAL IV PRN (16:45)
[2024-09-13 17:15] LABS: MAGNESIUM 1.9 mg/dL (1.8-2.4); PHOSPHOROUS 2.2 mg/dL (2.5-4.9)
[2024-09-13 17:16] LABS: BASOPHILS # (AUTO) 0.1 K/UL (0.0-0.2); BASOPHILS % (AUTO) 0.5 % (0.0-2.0); EOSINOPHILS # (AUTO) 0.5 K/uL (0.0-0.7); EOSINOPHILS % (AUTO) 4.4 % (0.0-7.0); HEMATOCRIT 32.7 % (31.2-41.9); HEMOGLOBIN 11.3 g/dL (10.9-14.3); LYMPHOCYTES % (AUTO) 16.8 % (20.5-51.5); MEAN CORPUSCULAR HEMOGLOBIN 30.6 uug (24.7-32.8); MEAN CORPUSCULAR HGB CONC 34 g/dL (32.3-35.6); MONOCYTES # (AUTO) 0.5 K/uL (0.1-1.30); MONOCYTES % (AUTO) 4.3 % (0.0-11.0); NEUTROPHILS # (AUTO) 8.9 K/uL (1.8-8.9); PLATELET COUNT (AUTO) 297 K/uL (179-408); RED BLOOD CELL COUNT(AUTO) 3.68 MIL/uL (3.63-4.92); RED CELL DISTRIBUTION WIDTH 15.1 % (12.3-17.7)
[2024-09-13 17:17] LABS: DIFFERENTIAL COMMENT 1
[2024-09-13 17:20] LABS: CARBON DIOXIDE 28 mmol/L (21-32); CHLORIDE 102 mmol/L (98-107); CREATININE 0.5 mg/dL (0.6-1.3); GLUCOSE 114 mg/dL (74-106); POTASSIUM 3.6 mmol/L (3.5-5.1); SODIUM SERUM 137 mmol/L (136-145); UREA NITROGEN, BLOOD 7 mg/dL (7-18)
[2024-09-13 19:00] VITALS: BP 102/72; TEMP 98.7; O2SAT 94
[2024-09-14] VITALS: O2SAT 96
[2024-09-14 06:00] VITALS: BP 113/63; TEMP 100.2; O2SAT 95
[2024-09-14 07:30] LABS: BASOPHILS % (AUTO) 0.2 % (0.0-2.0); EOSINOPHILS # (AUTO) 0.4 K/uL (0.0-0.7); EOSINOPHILS % (AUTO) 2.9 % (0.0-7.0); HEMATOCRIT 29.8 % (31.2-41.9); HEMOGLOBIN 10.4 g/dL (10.9-14.3); LYMPHOCYTES # (AUTO) 1.5 K/uL (0.8-4.8); LYMPHOCYTES % (AUTO) 12.3 % (20.5-51.5); MEAN CORPUSCULAR HEMOGLOBIN 30.8 uug (24.7-32.8); MEAN CORPUSCULAR HGB CONC 35 g/dL (32.3-35.6); MEAN CORPUSCULAR VOLUME 88.7 fL (75.5-95.3); MONOCYTES # (AUTO) 0.7 K/uL (0.1-1.30); MONOCYTES % (AUTO) 5.4 % (0.0-11.0); NEUTROPHILS # (AUTO) 9.6 K/uL (1.8-8.9); NEUTROPHILS % (AUTO) 79.2 % (38.5-71.5); PLATELET COUNT (AUTO) 279 K/uL (179-408); RED BLOOD CELL COUNT(AUTO) 3.36 MIL/uL (3.63-4.92); RED CELL DISTRIBUTION WIDTH 15.5 % (12.3-17.7); WHITE BLOOD COUNT (AUTO) 12.1 K/uL (3.8-11.8)
[2024-09-14 07:39] LABS: DIFFERENTIAL COMMENT 1
[2024-09-14 07:42] LABS: MAGNESIUM 1.7 mg/dL (1.8-2.4); PHOSPHOROUS 2.2 mg/dL (2.5-4.9)
[2024-09-14] MEDS: MAGNESIUM OXIDE 400 MG TABLET PO ONE (10:13)
[2024-09-14 11:56] VITALS: BP 98/56; TEMP 98.9; O2SAT 97
[2024-09-14] MEDS ORDERED: VANC500V PO (13:01)
[2024-09-14] MEDS ORDERED: CHOL4PAC6 PO (13:01)
[2024-09-14] MEDS: NEUTRA PHOS PACKET PO ONE (13:08)
[2024-09-14 14:34] VITALS: O2SAT 97
== END 2024-09-14 17:15 | DRG 372 ==
LOC: ER 02:11 → TELE3 10:28 → MEDSURG3 09-11 12:08
PROVIDERS: ADMIT Nurse Practitioner Acute Care; ATTEND Nurse Practitioner Acute Care
PROC: 05HC33Z Insertion of Infusion Device into Left Basilic Vein, Percutaneous Approach (ICD-10-PCS; principal; 2024-09-11)
PROC: 05HB33Z Insertion of Infusion Device into Right Basilic Vein, Percutaneous Approach (ICD-10-PCS; 2024-09-12)
DX: A04.72 Enterocolitis due to Clostridium difficile, not specified as recurrent (principal); E87.20 Acidosis, unspecified; N39.0 Urinary tract infection, site not specified; K21.9 Gastro-esophageal reflux disease without esophagitis; J44.9 Chronic obstructive pulmonary disease, unspecified; G89.4 Chronic pain syndrome; M81.0 Age-related osteoporosis without current pathological fracture; R25.1 Tremor, unspecified; F32.A Depression, unspecified; F41.9 Anxiety disorder, unspecified; Z53.20 Procedure and treatment not carried out because of patient's decision for unspecified reasons; Z79.899 Other long term (current) drug therapy; Z87.891 Personal history of nicotine dependence
CPT/HCPCS: 36415; 83605; 83690; 83735; 84100; 84484; 85025; G0378; J2405; J2543; J3370; J7040; J7120